=== PATIENT | female | born 1965 | race African-American/Black ===

== ENCOUNTER 2017-05-01 08:25 | Emergency (ER) | payer OTHER ==
[~2017-05-01] VITALS: Ht 165.1 cm; Wt 77.6 kg
== END 2017-05-01 09:08 | disposition home or self-care (01) ==
LOC: CED 08:25
DX: G44.209 Tension-type headache, unspecified, not intractable (principal); I10 Essential (primary) hypertension; Z90.49 Acquired absence of other specified parts of digestive tract; Z90.710 Acquired absence of both cervix and uterus
CPT/HCPCS: 99284